=== PATIENT | male | born 1970 | race African-American/Black ===

== ENCOUNTER 2016-09-09 13:00 | Outpatient (RCR) | payer BC | END 2016-10-09 | disposition home or self-care (01) | LOC: PTY 13:00 | DX: M72.2 Plantar fascial fibromatosis (principal); M76.61 Achilles tendinitis, right leg | CPT/HCPCS: 97110; 97140; 97161; G0283 ==

== ENCOUNTER 2016-10-11 16:00 | Outpatient (RCR) | payer BC | END 2016-11-08 | disposition home or self-care (01) | LOC: PTY 16:00 | DX: M72.2 Plantar fascial fibromatosis (principal); M67.02 Short Achilles tendon (acquired), left ankle; M67.01 Short Achilles tendon (acquired), right ankle | CPT/HCPCS: 97035; 97140; G0283 ==